=== PATIENT | male | born 1990 | race Hispanic/Latino ===

== ENCOUNTER 2016-05-14 13:59 | Outpatient (CLI) | payer OTHER ==
--- NOTE | 2016-05-17 09:22 | Magnetic Resonance Report ---
MR LOWER EXTREMITY JOINT RIGHT WITHOUT CONTRAST: MR LOWER EXTREMITY JOINT LEFT WITHOUT CONTRAST: HISTORY: Bilateral hip pain, low back pain. TECHNIQUE: Multiple T1 and T2-weighted images were obtained with and without fat suppression. Coronal STIR imaging. COMPARISON: No direct comparison. The MRI lumbar spine performed 12/10/15 was reviewed. FINDINGS: There is normal bone marrow signal throughout the visualized pelvis and bilateral hips. There is no evidence for fracture, dislocation, osteonecrosis, osteomyelitis or bone lesion. Mild joint space narrowing is suspected which could represent early osteoarthritic changes. MR arthrogram was not performed but no gross labral defect is appreciated. No large joint effusion. The periarticular musculature and musculotendinous structures are intact and unremarkable. Surgical changes in the lower lumbar spine are partially imaged and generate artifact. IMPRESSION: Essentially unremarkable exam of the bilateral hips. Perhaps minimal osteoarthritic changes are identified. No evidence for acute injury.
== END 2016-05-14 14:00 | disposition home or self-care (01) ==
LOC: MRI 13:59
PROVIDERS: ATTEND Family Medicine
DX: M16.0 Bilateral primary osteoarthritis of hip (principal); M25.551 Pain in right hip; M54.5 Low back pain
CPT/HCPCS: 73721

== ENCOUNTER 2016-07-14 09:31 | Outpatient (CLI) | payer OTHER ==
--- NOTE | 2016-07-14 11:54 | Ultrasound Report ---
RIGHT UPPER QUADRANT ULTRASOUND: HISTORY: Persistent reflux symptoms, abdominal pain. Technique: Transabdominal ultrasound imaging with Doppler interrogation. FINDINGS: The gallbladder is sonolucent with no evidence of stones, polyps or wall thickening. The common duct is normal in caliber. The liver parenchyma is echogenic consistent with mild fatty infiltration or other parenchymal disease. No focal liver lesion. Images of pancreas, right kidney and aorta are within normal limits. No perihepatic ascites. IMPRESSION: Mild fatty change in the liver.
== END 2016-07-14 09:32 | disposition home or self-care (01) ==
LOC: US 09:31
PROVIDERS: ATTEND Family Medicine
DX: R10.9 Unspecified abdominal pain (principal); Z86.19 Personal history of other infectious and parasitic diseases
CPT/HCPCS: 76705

== ENCOUNTER 2017-03-11 09:17 | Outpatient (CLI) | payer OTHER ==
--- NOTE | 2017-03-11 11:24 | Ultrasound Report ---
Limited abdominal ultrasound: Abnormal labs. The liver is is generally echogenic with suspicion of mild enlargement. No focal findings. The body and head of the pancreas are unremarkable. The tail is obscured. The gallbladder is echogenically normal. The CBD diameter is 5 mm. The right renal length is 10.9 cm and echogenically unremarkable. The diameter of the proximal abdominal aorta is 1.6 cm. No significant change compared to prior study of July 14, 2016. Impression: Hepatic steatosis. Questionable enlargement.
== END 2017-03-11 09:18 | disposition home or self-care (01) ==
LOC: US 09:17
PROVIDERS: ATTEND Family Medicine
DX: K76.0 Fatty (change of) liver, not elsewhere classified (principal); R74.0 Nonspecific elevation of levels of transaminase and lactic acid dehydrogenase [LDH]
CPT/HCPCS: 76705